=== PATIENT | female | born 2000 | race Caucasian/White ===

== ENCOUNTER 2022-04-16 16:00 | Emergency (ER) | payer BC, SELFPAY ==
[2022-04-16 16:14] VITALS: BP 105/65; PULSE 117; RESP 18; TEMP 36.7; O2SAT 99
--- NOTE | 2022-04-16 16:36 | ED.URI ---
HPI - URI/Sore Throat General Chief Complaint: Upper Respiratory Infection Stated Complaint: Body Aches,Headache,Cough,Congestion Source: patient Mode of arrival: ambulatory History of Present Illness HPI Narrative: This is a 21-year-old female presents our urgent care with complaints of headache, fatigue, decreased appetite, lower back pain nonproductive cough, sore throat, nausea vomit, pain in both ears, fever 100.0, chills and congestion with a runny nose that started on Wednesday. Patient notes she took Tylenol and placed a heating pad to the back. The patient denies SOB, CP, palpitation, extremity numbness, lightheadedness, dizziness, constipation, and diarrhea. Related Data Allergies Allergy/AdvReac Type Severity Reaction Status Date / Time No Known Allergies Allergy Verified 04/16/22 16:11 Review of Systems Review of Systems: A 14 organ system Review of Systems was performed and pertinent positives included in the HPI, otherwise remaining ROS is negative. Exam Narrative: GENERAL: Ill appearance, in no apparent distress. HEAD: normocephalic, atraumatic. EYES: PERRL. Sclera clear/white. Vision is grossly intact. EARS: External ears normal, auditory canals clear and without drainage, TMs normal without perforation. Hearing grossly intact. NOSE: External nose normal with no obvious nasal discharge, nares without redness, no rhinorrhea. THROAT: Mucous membranes moist, posterior pharynx clear. NECK: Neck supple, non-tender without lymphadenopathy, masses or thyromegaly. CARDIOVASCULAR: Regular rate and rhythm without murmurs, gallops, or rubs. RESPIRATORY: Clear to auscultation. Breath sounds equal bilaterally. No wheezes, rales, or rhonchi. GASTROINTESTINAL: Abdomen soft, non-tender, nondistended. Bowel sounds are active. No hepato-splenomegaly, or palpable masses. No guarding. SKIN: warm, intact with no suspicious lesions or rash, good texture and turgor. NEURO: awake, alert, and oriented to person, place and time. There were no obvious focal neurologic abnormalities. EXTREMITIES: Normal range of motion. No edema. No calf tenderness. Course Course Emergency Course: Patient tested positive for influenza A she will discharge with Tamiflu, Tessalon Perles, guaifenesin and Zofran Level of Care: Express Care Visit Vital Signs Vital signs: Vital Signs Temperature 98.0 F 04/16/22 16:14 Pulse Rate 117 H 04/16/22 16:14 Respiratory Rate 18 04/16/22 16:14 Blood Pressure 105/65 04/16/22 16:14 Pulse Oximetry 99 04/16/22 16:14 Oxygen Delivery Room Air 04/16/22 16:14 Temperature 98.0 F 04/16/22 16:14 Pulse Rate 117 H 04/16/22 16:14 Respiratory Rate 18 04/16/22 16:14 Blood Pressure 105/65 04/16/22 16:14 Pulse Oximetry 99 04/16/22 16:14 Oxygen Delivery Room Air 04/16/22 16:14 Discharge Plan Discharge Clinical Impression: Influenza Patient Disposition: Home, Self-Care Condition: Stable Instructions: Antibiotic Form, Influenza (DC) Additional Instructions: Take prescribed medication as instructed When do I need to call the doctor? Fever or cough returns or gets worse Chest pain with deep breathing Confusion or sudden dizziness Very bad throwing up or throwing up that does not stop Trouble breathing Passing less urine You are not feeling better in 2 to 3 days or you are feeling worse Most healthy adults may be able to infect other people beginning 1 day before symptoms develop and up to 5 to 7 days after becoming sick. Children may pass the virus for longer than 7 days. Symptoms start 1 to 4 days after the virus enters the body. Prescriptions: New oseltamivir [Tamiflu] 75 mg capsule 75 mg PO Q12H 5 Days Qty: 10 0RF benzonatate 200 mg capsule 200 mg PO TID PRN (Reason: cough) Qty: 30 0RF guaifenesin 400 mg tablet 400 mg PO Q4H PRN (Reason: congestion) Qty: 30 0RF ondansetron 4 mg tablet,disintegrating 4 mg PO Q8H PRN (Reason: nausea and vom
== END 2022-04-16 16:38 | disposition home or self-care (01) ==
PROVIDERS: Emergency Provider Nurse Practitioner
DX: J10.1 Influenza due to other identified influenza virus with other respiratory manifestations (principal); Z20.822 Contact with and (suspected) exposure to COVID-19
CPT/HCPCS: 87426; 87804; 99203; C9803; G0463

== ENCOUNTER 2023-05-05 17:56 | Emergency (ER) | payer BC, SELFPAY ==
[2023-05-05 18:03] VITALS: BP 110/68; PULSE 83; RESP 16; TEMP 36.8; O2SAT 100
--- NOTE | 2023-05-05 18:31 | ED.WOUNDLAC ---
HPI - Wound/Laceration General Chief Complaint: Wound/Laceration Stated Complaint: Right Hand Injury Time Seen by Provider: 05/05/23 18:31 Source: patient Mode of arrival: ambulatory Limitations: no limitations History of Present Illness HPI narrative: 22-year-old female presenting for complaint of laceration to the right index finger (MCP). States she cut the finger on a filet knife while doing dishes. She then rinsed the wound with Trixie dish soap. Denies decreased range of motion to the hand or fingers. Unsure of last tetanus but states she thinks she is UTD and will confirm with pcp and get it updated with pcp if needed. Related Data Allergies Allergy/AdvReac Type Severity Reaction Status Date / Time No Known Allergies Allergy Verified 05/05/23 18:11 Review of Systems Review of Systems: CONSTITUTIONAL: Denies body aches, fever, chills CARDIOVASCULAR: Denies chest pain, palpitations, or edema. RESPIRATORY: Denies cough or dyspnea. GASTROINTESTINAL: Denies abdominal pain, nausea, vomiting, or diarrhea. SKIN: Reports laceration to finger. MUSCULOSKELETAL: Denies back pain, joint pain, or myalgia. NEUROLOGIC: Denies headache, numbness, tingling, or weakness. All systems reviewed & are unremarkable except as noted in HPI and below PMFSH Past Medical History Medical History (Updated 05/05/23 @ 20:16 by Fallon Singh APRN) No pertinent past medical history Comments At time of signature, I have reviewed and agree with nursing past medical, surgical, social and family history unless otherwise noted. Please see nursing chart for further information. There is no relevant family history pertinent to the presenting complaint Exam Narrative: GENERAL: Well-appearing. CHEST: Speaks in full sentences. No respiratory distress. HEART: Regular rate and rhythm. Normal and equal peripheral pulses. EXTREMITIES: Laceration to right MCP linear approx 1cm, slightly gaping, mild bleeding. Finger has normal strength and sensation, normal range of motion. pulse palpable and equal bilaterally, skin warm, dry, pink. Capillary refill less than 3 seconds. SKIN: Warm, dry, no rash. NEURO: Alert and oriented x3. PSYCH: Normal mood and affect Course Course Emergency Course: Patient is aware of diagnosis, understands and agrees to treatment plan. Anticipatory guidance given. Patient agrees to follow-up as directed and is aware of reasons to seek care at the emergency department. Portions of this record may have been created with voice recognition software Level of Care: Express Care Visit Vital Signs Vital signs: Vital Signs Temperature 98.2 F 05/05/23 18:03 Pulse Rate 83 05/05/23 18:03 Respiratory Rate 16 05/05/23 18:03 Blood Pressure 110/68 05/05/23 18:03 Pulse Oximetry 100 05/05/23 18:03 Temperature 98.2 F 05/05/23 18:03 Pulse Rate 83 05/05/23 18:03 Respiratory Rate 16 05/05/23 18:03 Blood Pressure 110/68 05/05/23 18:03 Pulse Oximetry 100 05/05/23 18:03 Oxygen Delivery Room Air 05/05/23 18:06 Reviewed Procedures Laceration right hand: Date: 05/05/23 Site: hand (2nd digit MCP) Size (cm): 1 Description: linear Depth: simple, single layer Local Anesthetic: lidocaine 1% Amount of anesthesia used (mL): 2 Pre-repair: wound explored and irrigated (skintegrity) ====== Skin Level ====== Skin layer closed with: nylon Size (cm): 5-0 Number of sutures: 3 Technique: simple, interrupted ====== Subcutaneous Layer ====== ====== Muscle Layer ====== ====== Tendon Layer ====== Dressing: The procedure and its alternatives were reviewed with patient. Risks were reviewed with patient including infection and damage to nearby structures. Patient provided verbal informed consent. The patient was positioned appropriately. Sterile drapes applied to maintain sterile field. Wound wa
[2023-05-05] MEDS: LIDOCAINE HCL 1% LOCAL INJ 2 ML AMPUL INFILTRATE (18:43)
--- NOTE | 2023-05-05 19:06 | PC.NURSE ---
+PMS POST FINGER SPLINT APPLICATION.
== END 2023-05-05 19:10 | disposition home or self-care (01) ==
PROVIDERS: Emergency Provider Nurse Practitioner Family
DX: S61.411A Laceration without foreign body of right hand, initial encounter (principal); W26.0XXA Contact with knife, initial encounter; Y93.G1 Activity, food preparation and clean up
CPT/HCPCS: 12001; 99213; G0463